=== PATIENT | male | born 1965 | race Caucasian/White ===

== ENCOUNTER 2016-12-01 13:00 | Inpatient (IN) | payer OTHER ==
[2016-12-01] MEDS ORDERED: SODIUM CHLORIDE 0.9% 1,000 ML IV STA (13:14)
[2016-12-01 13:39] LABS: Basophils # (A) 0.1 k/uL (0-0.2); Basophils % (A) 1 %; CHCM 33.9; Eosinophils # (A) 0.1 k/uL (0-0.7); Eosinophils % (A) 1 %; HCT 47.1 % (39.0-53.0); HDW 2.24; HGB 15.8 gm/dL (13.0-17.5); Luc # (Auto) 0.19; Luc % (Auto) 2; Lymphocytes # (A) 3.2 k/uL (1.0-4.8); Lymphocytes % (A) 28 %; MCH 31.8 pg (25.0-35.0); MCHC 33.5 g/dL (31.0-37.0); MCV 94.7 fL (80.0-100.0); Mean Platelet Volume 6.7; Monocytes # (A) 0.5 k/uL (0-1.0); Monocytes % (A) 5 %; Neutrophils # (A) 7.3 k/uL (1.3-7.7); Neutrophils % (A) 64 %; RBC 4.97 m/uL (4.30-5.90); RDW 13.5 % (11.5-15.5); WBC 11.4 k/uL (3.8-10.6); WBC (Perox) 11.05
--- NOTE | 2016-12-01 13:43 | ED ---
General Adult HPI - General Chief complaint: Neuro Symptoms/Deficit Stated complaint: left side numbness/near syncope/vomiting/high bp Time Seen by Provider: 12/01/16 13:08 Source: patient, RN notes reviewed, old records reviewed Mode of arrival: wheelchair Limitations: no limitations - History of Present Illness Initial comments: This is a 51-year-old male the ER for evaluation of vertigo and syncope. Patient had syncopal event earlier today this was well at work. Patient also complains of some mild left-sided headache. It started this afternoon. Patient did follow the ground during syncopal event in an attempt to get up was unable to stand secondary to dizziness. Patient's been dizzy ever since. Patient denies any chest pain denies any shortness of breath. Is complaining of the room spinning around. Patient does have high cholesterol, does smoke and does have occasional high blood pressure. Patient denies any other neurological complaint - Related Data Home Medications Medication Instructions Recorded Confirmed Buprenorphine HCl/Naloxone HCl 0.5 film SL MOWEFR 12/01/16 12/01/16 [Suboxone 2 mg-0.5 mg Sl Film] Buprenorphine HCl/Naloxone HCl 1 film SL SUTUTHSA 12/01/16 12/01/16 [Suboxone 2 mg-0.5 mg Sl Film] Gabapentin [Neurontin] 300 mg PO TID 12/01/16 12/01/16 Allergies Allergy/AdvReac Type Severity Reaction Status Date / Time morphine AdvReac TIRED Verified 12/01/16 13:33 Review of Systems ROS Statement: Those systems with pertinent positive or pertinent negative responses have been documented in the HPI. ROS Other: All systems not noted in ROS Statement are negative. 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 Absent: scleral icterus, conjunctival injection, periorbital swelling ENT exam: Present: normal exam, mucous membranes moist Neck exam: Present: normal inspection. Absent: tenderness, meningismus, lymphadenopathy Respiratory exam: Present: normal lung sounds bilaterally. Absent: respiratory distress, wheezes, rales, rhonchi, stridor Cardiovascular Exam: Present: regular rate, normal rhythm, normal heart sounds. Absent: systolic murmur, diastolic murmur, rubs, gallop, clicks GI/Abdominal exam: Present: soft, normal bowel sounds. Absent: distended, tenderness, guarding, rebound, rigid Extremities exam: Present: normal inspection, full ROM, normal capillary refill. Absent: tenderness, pedal edema, joint swelling, calf tenderness Back exam: Present: normal inspection Neurological exam: Present: alert, oriented X3, CN II-XII intact Psychiatric exam: Present: normal affect, normal mood Skin exam: Present: warm, dry, intact, normal color. Absent: rash Course Vital Signs 12/01/16 12/01/16 12/01/16 13:04 14:23 14:59 Temperature 97.5 F L Pulse Rate 78 63 58 L Respiratory 18 16 18 Rate Blood Pressure 150/76 137/86 150/77 O2 Sat by Pulse 100 98 100 Oximetry 12/01/16 12/01/16 15:23 15:53 Temperature Pulse Rate 59 L 63 Respiratory 16 Rate Blood Pressure 134/83 131/72 O2 Sat by Pulse 99 99 Oximetry - Reevaluation(s) Reevaluation #1: 12/01/16 16:29 In attempt to get patient to walk patient stood up and immediately tumble to his left and was unable to ambulate EKG Findings - EKG Comments: EKG Findings:: EKG shows sinus rhythm rate of 79, OR 146, QRS 82, QTC 419 Medical Decision Making - Medical Decision Making 51 male here for evaluation of neurological complaint. Patient has syncopal event followed by severe vertigo and ataxia. Patient remained ataxic in the emergency department, will be admitted for neurological evaluation and treatment regarding syncope as well as ataxia and vertigo - Lab Data Result diagrams: 12/01/16 13:17 12/01/16 13: Lab Results 12/01/16 12/01/16 12/01/16 Range/Units 13:17 13:17 13: WBC 11.4 H (3.8-10.6) k/uL RBC 4.97 (4.30-5.90) m/uL Hgb 15.8 (13.0-17.5) gm/dL Hct 47.1 (39.0-53.0) % MCV 94.7 (80.0-100.0) fL MCH 31.8 (25.0-35.0) pg MCHC 33.5 (31.0-37.0) g/dL RDW 13.5 (11.5-15.5) % Plt Count 270 (150-450) k/uL Neutrophils % 64 % Lymphocytes % 28 % Monocytes % 5 % Eosinophils % 1 % Basophils % 1 % Neutrophils # 7.3 (1.3-7.7) k/uL Lymphocytes # 3.2 (1.0-4.8) k/uL Monocytes # 0.5 (0-1.0) k/uL Eosinophils # 0.1 (0-0.7) k/uL Basophils # 0.1 (0-0.2) k/uL PT (9.0-12.0) sec INR (<1.1) APTT (22.0-30.0) sec Sodium 139 (137-145) mmol/L Potassium 3.6 (3.5-5.1) mmol/L Chloride 104 (98-107) mmol/L Carbon Dioxide 23 (22-30) mmol/L Anion Gap 12 mmol/L BUN 17 (9-20) mg/dL Creatinine 0.92 (0.66-1.25) mg/dL Est GFR (MDRD) Af Amer >60 (>60 ml/min/1.73 sqM) Est GFR (MDRD) Non-Af >60 (>60 ml/min/1.73 sqM) Glucose 102 H (74-99) mg/dL Calcium 10.0 (8.4-10.2) mg/dL Phosphorus 2.3 L (2.5-4.5) mg/dL Magnesium 1.8 (1.6-2.3) mg/dL Total Bilirubin 0.8 (0.2-1.3) mg/dL AST 26 (17-59) U/L ALT 35 (21-72) U/L Alkaline Phosphatase 74 (38-126) U/L Total Creatine Kinase 168 (55-170) U/L CK-MB (CK-2) 1.2 (0.0-2.4) ng/mL CK-MB (CK-2) Rel Index 0.7 Troponin I <0.012 (0.000-0.034) ng/mL Total Protein 7.5 (6.3-8.2) g/dL Albumin 4.6 (3.5-5.0) g/dL 12/01/16 Range/Units 13:17 WBC (3.8-10.6) k/uL RBC (4.30-5.90) m/uL Hgb (13.0-17.5) gm/dL Hct (39.0-53.0) % MCV (80.0-100.0) fL MCH (25.0-35.0) pg MCHC (31.0-37.0) g/dL RDW (11.5-15.5) % Plt Count (150-450) k/uL Neutrophils % % Lymphocytes % % Monocytes % % Eosinophils % % Basophils % % Neutrophils # (1.3-7.7) k/uL Lymphocytes # (1.0-4.8) k/uL Monocytes # (0-1.0) k/uL Eosinophils # (0-0.7) k/uL Basophils # (0-0.2) k/uL PT 11.0 (9.0-12.0) sec INR 1.1 (<1.1) APTT 22.4 (22.0-30.0) sec Sodium (137-145) mmol/L Potassium (3.5-5.1) mmol/L Chloride (98-107) mmol/L Carbon Dioxide (22-30) mmol/L Anion Gap mmol/L BUN (9-20) mg/dL Creatinine (0.66-1.25) mg/dL Est GFR (MDRD) Af Amer (>60 ml/min/1.73 sqM) Est GFR (MDRD) Non-Af (>60 ml/min/1.73 sqM) Glucose (74-99) mg/dL Calcium (8.4-10.2) mg/dL Phosphorus (2.5-4.5) mg/dL Magnesium (1.6-2.3) mg/dL Total Bilirubin (0.2-1.3) mg/dL AST (17-59) U/L ALT (21-72) U/L Alkaline Phosphatase (38-126) U/L Total Creatine Kinase (55-170) U/L CK-MB (CK-2) (0.0-2.4) ng/mL CK-MB (CK-2) Rel Index Troponin I (0.000-0.034) ng/mL Total Protein (6.3-8.2) g/dL Albumin (3.5-5.0) g/dL - Radiology Data Radiology results: report reviewed (CT brain CTA head and neck is negative for acute disease), image reviewed Disposition Clinical Impression: Cerebrovascular accident, Vertigo, Ataxia, Syncope Disposition: ADMITTED IP TO THIS [facility] Condition: Fair Referrals: Milan Lala MD [Primary Care Provider] - 1-2 days
[2016-12-01 13:46] LABS: ALT 35 U/L (21-72); AST 26 U/L (17-59); Alkaline Phosphatase 74 U/L (38-126); Anion Gap 12 mmol/L; Blood Urea Nitrogen 17 mg/dL (9-20); Carbon Dioxide 23 mmol/L (22-30); Chloride 104 mmol/L (98-107); Glucose 102 mg/dL (74-99); Magnesium 1.8 mg/dL (1.6-2.3); Non-African American GFR(MDRD) >60 (>60 ml/min/1.73 sqM); Phosphorous 2.3 mg/dL (2.5-4.5); Potassium 3.6 mmol/L (3.5-5.1); Sodium 139 mmol/L (137-145); Total Bilirubin 0.8 mg/dL (0.2-1.3); Total Protein 7.5 g/dL (6.3-8.2)
[2016-12-01 13:50] LABS: INR 1.1 (<1.1); Partial Thromboplastin Time 22.4 sec (22.0-30.0)
[2016-12-01] MEDS ORDERED: ONDANSETRON 4 MG/2 ML VIAL IVP STA (14:05)
[2016-12-01 14:06] LABS: Creatine Kinase 168 U/L (55-170)
[2016-12-01 14:20] LABS: Creatine Kinase MB 1.2 ng/mL (0.0-2.4); Troponin I <0.012 ng/mL (0.000-0.034)
--- NOTE | 2016-12-01 14:20 | XR ---
EXAMINATION TYPE: XR chest 2V DATE OF EXAM: 12/01/2016 2:01 PM COMPARISON: 02/25/2014 HISTORY: 51-year-old male with weakness TECHNIQUE: Frontal and lateral views FINDINGS: The heart is normal size. Aorta and pulmonary vasculature within normal limits. Mild interstitial pro minence similar to prior exam. Some strandy opacity in the lingula. No consolidation or pleural effus ion. IMPRESSION: Chronic changes. Some strandy atelectasis in the lingula. No definite acute process.
[2016-12-01] MEDS ORDERED: DIAZEPAM 5 MG/ML 2 ML SYRINGE IVP STA (14:23)
[2016-12-01] MEDS ORDERED: RX INFO: IV CONTRAST WAS GIVEN 1 EACH MISC MISCELLANE PRN (14:23)
[2016-12-01] MEDS ORDERED: MORPHINE SULFATE 4 MG/ML SYRINGE IVP STA (14:23)
--- NOTE | 2016-12-01 14:25 | CT ---
EXAMINATION TYPE: CT brain wo con DATE OF EXAM: 12/01/2016 1:56 PM COMPARISON: NONE INDICATION: Lightheaded, NAVARRO, Lt sided weakness DLP: 1159 mGycm, Automated exposure control for dose reduction was used. CONTRAST: None CT of the brain is performed utilizing 3 mm thick sections through the posterior fossa and 3 mm thick sections through the remaining calvarium. Study is performed within 24 hours of arrival to the hosp ital. No abnormal hyperdensity is present to suggest an acute intracranial hemorrhage. No mass lesion is evident. No acute infarcts are evident. Ventricles and sulci are appropriate for the patient age. Some mucosal thickening is within ethmoid air cells. There may be an air-fluid level within the left sphenoid sinus. Remaining paranasal sinuses and mastoid air cells are clear IMPRESSIONS: 1. Normal CT Brain 2. Mucosal thickening possible air-fluid level within ethmoid and sphenoid sinuses discussed above. C orrelate for mild acute sinusitis left sphenoid sinus.
[2016-12-01] MEDS ORDERED: ACETAMINOPHEN TAB 500 MG TAB PO STA (14:37)
[2016-12-01] MEDS ORDERED: diphenhydrAMINE 50 MG/ML 1 ML VIAL IVP STA (14:37)
--- NOTE | 2016-12-01 16:01 | CT ---
EXAMINATION TYPE: CT angio head neck DATE OF EXAM: 12/01/2016 3:06 PM COMPARISON: NONE HISTORY: Near syncope. CT DLP: 472.00 mGycm Automated exposure control for dose reduction was used. TECHNIQUE: Performed with IV Contrast, patient injected with 65 mL of Omnipaque 350. . FINDINGS: [place]: The internal carotid arteries bifurcate into A1 and M1 segments. The right A1 segme nt is attenuated which may be congenital the M1 segments appear normal bilaterally. Middle cerebral a rtery branches appear normal. A2 segments are unremarkable. The anterior communicating artery is velazquez nt. Right posterior communicating artery is patent. Vertebral arteries are codominant. The basilar ar poonam is unremarkable. Posterior cerebral vasculature is normal. Neck carotid vessels: Common carotid arteries bifurcate normally into internal and external carotid v essels. No stenosis is evident. Internal carotid arteries extend to the intracranial portion. There is a three-vessel arch. IMPRESSION: 1. 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 2. [place] OTHERWISE APPEARS UNREMARKABLE. 3. NORMAL CAROTID BIFURCATION WITHOUT STENOSIS.
[2016-12-01] MEDS ORDERED: ASPIRIN 325 MG TAB PO STA (16:25)
[2016-12-01] MEDS ORDERED: DIAZEPAM 5 MG/ML 2 ML SYRINGE IVP PRN (16:26)
[2016-12-01] MEDS ORDERED: ONDANSETRON 4 MG/2 ML VIAL IVP PRN (16:26)
[2016-12-01] MEDS ORDERED: PANTOPRAZOLE 40 MG/10 ML VIAL IVP STA (16:26)
[2016-12-01] MEDS ORDERED: HYDROmorphone 1 MG/ML 1 ML SYRINGE IVP PRN (16:27)
[2016-12-01] MEDS ORDERED: HYDROmorphone 1 MG/ML 1 ML SYRINGE IVP STA (16:27)
[2016-12-01] MEDS ORDERED: SODIUM CHLORIDE 0.9% 1,000 ML IV SCH (16:30)
--- NOTE | 2016-12-01 18:21 | US ---
EXAMINATION TYPE: US carotid duplex BILAT DATE OF EXAM: 12/01/2016 5:59 PM COMPARISON: NONE CLINICAL HISTORY: Stenosis. EXAM MEASUREMENTS: RIGHT: Peak Systolic Velocity (PSV) cm/sec ----- Right CCA: 68.8 ----- Right ICA: 80.6 ----- Right ECA: 80.5 ICA/CCA ratio: 1.2 RIGHT: End Diastole cm/sec ----- Right CCA: 17.5 ----- Right ICA: 31.9 ----- Right ECA: 14.5 LEFT: Peak Systolic Velocity (PSV) cm/sec ----- Left CCA: 70.0 ----- Left ICA: 80.7 ----- Left ECA: 74.3 ICA/CCA ratio: 1.2 LEFT: End Diastole cm/sec ----- Left CCA: 21.2 ----- Left ICA: 32.0 ----- Left ECA: 10.1 VERTEBRALS (direction of flow): Right Vertebral: Antegrade Left Vertebral: Antegrade No significant velocity elevations Doppler waveforms are unremarkable. No significant plaquing is evident. There may be some mild intima l thickening present on the left without significant stenosis. IMPRESSION: 1. No significant flow-limiting stenosis. Criteria for Assigning % of Stenosis / Diameter reduction (Estimation based on the indirect measurements of the internal carotid artery velocities (ICA PSV). 1. Normal (no stenosis)=ICA PSV < 125 cm/s: ratio < 2.0: ICA EDV<40 cm/s. 2. Less than 50% stenosis=ICA PSV < 125 cm/s: ratio < 2.0: ICA EDV<40 cm/s. 3. 50 to 69% stenosis=ICA PSV of 125 to 230 cm/s: ration 2.0 ? 4.0: ICA EDV 40-100 cm/s. 4. Greater than 70% stenosis to near occlusion= ICA PSV > 230 cm/s: ratio > 4.0: ICA EDV > 100 cm/s. 5. Near occlusion= ICA PSV velocities may be low or undetectable: variable ratio and ICA EDV. 6. Total occlusion=unable to detect flow.
--- NOTE | 2016-12-01 21:42 | P.CNNES ---
History of Present Illness Consult date: 12/01/16 Reason for Consult: Patient admitted with acute vertigo and possible syncope. History of Present Illness: This patient is a 51-year-old right-handed white male who was in his usual state of health earlier this morning. 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 He is on to work and was doing well until mid morning when he went to the kitchen area and apparently standing near the sink suddenly felt extremely dizzy and vertiginous. Patient states he was feeling the room spinning around him. He then became extremely diaphoretic and his head fell forward and he struck the counter where he was standing. Coworkers immediately assisted him and had him sit down. Patient states he was feeling very nauseated and felt sick to his stomach. The symptoms came on suddenly with no warning. He was unable to stand and ambulate due to severe symptoms of dizziness. 2 days prior to this patient had been complaining of left ear pain. He did not experience any fever or chills. He has today experience some neck discomfort which is possibly due to the mild trauma. The patient did not want to go to the hospital this morning as was recommended by his coworkers. He instead called his who took him home and then his symptoms worsened and she decided to bring him to the ER. Patient was brought to the [facility] emergency room where he was examined by Dr. Brownlee. He ordered a computed tomography scan of the brain which revealed no acute changes. It was read as a normal CT of the brain. He was sent for a CTA angiogram of the head and neck which came back negative for any major changes. He was subsequently admitted to the hospital. In the ER he was administered Valium 5 mg IV push. After receiving the Valium his symptoms of acute vertigo did seem to improve. He was also given some Zofran due to severe nausea symptoms he was experiencing. Patient does not appear to be toxic at this time but still feels he is lightheaded. He denies having any previous history of TIA or stroke. He denies any previous history of acute vertigo or labyrinthitis. The patient also underwent a carotid Doppler ultrasound today. This came back negative for any significant carotid artery stenosis. We reviewed all of the test results today with the patient. He is now been admitted and neurology has been consulted for further evaluation and recommendations. Review of Systems Constitutional: Denies chills, Denies fever Eyes: denies blurred vision, denies pain Ears, nose, mouth and throat: Denies headache, Denies sore throat Cardiovascular: Denies chest pain, Denies shortness of breath Respiratory: Denies cough Gastrointestinal: Denies abdominal pain, Denies diarrhea, Denies nausea, Denies vomiting Musculoskeletal: Denies myalgias Integumentary: Denies pruritus, Denies rash Neurological: Reports gait dysfunction, Reports head injury, Reports vertigo, Denies numbness, Denies weakness Psychiatric: Denies anxiety, Denies depression Endocrine: Denies fatigue, Denies weight change Past Medical History Past Medical History: Hyperlipidemia, Hypertension 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 History of Any Multi-Drug Resistant Organisms: None Reported Past Surgical History: Appendectomy Additional Past Surgical History / Comment(s): Chest tube Past Psychological History: No Psychological Hx Reported Smoking Status: Current every day smoker Past Alcohol Use History: Occasional Past Drug Use History: None Reported Medications and Allergies Home Medications Medication Instructions Recorded Confirmed Type Buprenorphine HCl/Naloxone HCl 0.5 film SL MOWEFR 12/01/16 12/01/16 History [Suboxone 2 mg-0.5 mg Sl Film] Buprenorphine HCl/Naloxone HCl 1 film SL SUTUTHSA 12/01/16 12/01/16 History [Suboxone 2 mg-0.5 mg Sl Film] Gabapentin [Neurontin] 300 mg PO TID 12/01/16 12/01/16 History Allergies Allergy/AdvReac Type Severity Reaction Status Date / Time morphine AdvReac TIRED Verified 12/01/16 13:33 Physical Examination - Vital Signs Vital Signs: Vital Signs Temp Pulse Pulse Resp BP Pulse Ox 12/01/16 18:25 97.1 F L 61 16 128/81 98 12/01/16 17:25 61 16 134/86 98 12/01/16 17:00 57 L 16 144/87 98 12/01/16 16:48 97.0 F L 58 L 18 140/85 97 Intake and Output 12/01/16 12/01/16 12/01/16 06:59 14:59 22:59 Intake Total 1500 Balance 1500 Intake: Amount of Fluid Infused ( 1500 ml) - Constitutional General appearance: average body habitus, cooperative - EENT EENT: PERRL, mucous membranes moist - Respiratory Respiratory: lungs clear, normal breath sounds - Cardiovascular Cardiovascular: regular rate, normal S1, normal S2 Extremities: no peripheral edema bilaterally - Gastrointestinal Gastrointestinal: normoactive bowel sounds - Integumentary Integumentary: normal - Neurologic Cranial nerve examination: PERRL, EOMI (Patient noted to have horizontal nystagmus on end gaze testing.), V1/V2/V3 grossly intact, face symmetric, tongue midline, intact gag reflex, intact corneal reflex, normal palatal elevation Speech examination: intact Sensorimotor examination: intact Detailed motor examination: grossly full strength in all extremities Motor examination - right side: 5/5: biceps, triceps, wrist flexion, wrist extension, cuff slitter, hip flexors, knee extensors, dorsiflexion, toe extension (EHL) , plantarflexion Motor examination - left side: 5/5: biceps, triceps, wrist flexion, wrist extension, cuff slitter, hip flexors, knee extensors, dorsiflexion, toe extension (EHL) , plantarflexion Detailed sensory examination: intact Reflex and gait examination: intact Reflexes: 1+: ankle, bicep, knee, tricep - Musculoskeletal Musculoskeletal: no pain - Psychiatric Psychiatric: mood/affect appropriate, cooperative Results - Laboratory Findings CBC and BMP: 12/01/16 13:17 12/01/16 13:17 Assessment and Plan (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 He was unable to stand due to nausea vomiting and extreme dizziness. He did not wish to go to the emergency room but rather called his and went home. His symptoms worsened and he was brought into the emergency room for further evaluation. He was seen in the ER by Dr. Brownlee. He underwent a computed tomography scan of the brain which was reported negative and normal for age. He was admitted to Hospital. He underwent a CTA angiogram which is also reported negative for any acute changes. Carotid Doppler study came back negative for any significant carotid artery stenosis. Patient was admitted for further neurological evaluation. His neurological examination today reveals him to have horizontal nystagmus on in gaze testing. He does have minimal signs of dysmetria. His clinical history and exam findings suggest possible benign paroxysmal positional vertigo. We are recommending to start him on low dose meclizine 12.5 mg twice a day. We will obtain an MRI of the brain for further assessment as well. He did have what appears to be in acute syncopal episode etiology undetermined. He should be closely followed with cardiac monitoring to rule out cardiac arrhythmia. We will obtain routine EEG to rule out seizure disorder. He is complaining of some neck discomfort following this mild trauma and we will obtain a computed tomography scan of the cervical spine. His overall prognosis at this time remains guarded. We will continue close neurological follow-up with the patient during this admission. Time with Patient: Greater than 30
[2016-12-02] MEDS: GABAPENTIN 300 MG CAP PO SCH ×3 (00:04→16:02)
[2016-12-02] MEDS: ACETAMINOPHEN TAB 325 MG TAB PO PRN ×3 (00:05→18:46)
[2016-12-02] MEDS ORDERED: [UNRECOGNIZED DRUG - OTHER] SL SCH ×2 (09:00→23:59)
[2016-12-02] MEDS ORDERED: NALOXONE HCL SL SCH ×2 (09:00→23:59)
[2016-12-02] MEDS ORDERED: BUPRENORPHINE HCL SL SCH ×2 (09:00→23:59)
[2016-12-02] MEDS ORDERED: ASPIRIN 325 MG TAB PO SCH (09:00)
[2016-12-02] MEDS ORDERED: MECLIZINE 12.5 MG TAB PO SCH (09:00)
--- NOTE | 2016-12-02 10:06 | MR ---
EXAMINATION TYPE: MR brain wo con DATE OF EXAM: 12/02/2016 9:45 AM COMPARISON: CT brain from yesterday. HISTORY: Patient with acute vertigo and ataxia. Additional symptoms of headache and left-sided weakne ss on admission one day earlier. TECHNIQUE: Multiplanar, multisequence imaging of the brain and brainstem is performed without IV cont rast. FINDINGS: Diffusion weighted images demonstrate demonstrate increased signal on diffusion weighted images with diminished signal on ADC mapping that shows T1 hypointensity and T2 hyperintensity involving the infe rior medial left cerebellum over roughly 3.3 x 2.1 cm area on image 40 series 305 by roughly 2 cm unscrambler niocaudal area on coronal and sagittal image 9. Findings consistent with evolving acute infarct. There is no worrisome extra-axial fluid collection. The ventricular system and cisternal spaces are normal in size and appearance. The brain volume is age appropriate. There are scattered foci of T2 h yperintensity seen throughout the white matter bilaterally. Approximately 15-20 scattered lesions are seen all measuring 4 mm or smaller in size. Lesions are nonspecific in appearance and distribution. Midline structures demonstrate normal morphology. The craniocervical junction appears within normal limits. Normal vascular flow voids are present. Dominant right vertebral artery is present. There is mild mucosal thickening involving ethmoid sinuses bilaterally otherwise paranasal sinuses are clear. The globes are intact bilaterally. IMPRESSION: 1. Acute infarct inferior medial left cerebellum as detailed above.
--- NOTE | 2016-12-02 10:51 | CT ---
EXAMINATION TYPE: CT cervical spine wo con DATE OF EXAM: 12/02/2016 10:44 AM COMPARISON: NONE HISTORY: 51-year-old male with mild neck trauma with syncope TECHNIQUE: Contiguous axial scanning of the cervical spine without IV contrast. Coronal and sagittal reconstructions performed. CT DLP: 638.20 mGycm Automated exposure control for dose reduction was used. FINDINGS: Mild emphysematous change in the visualized upper lungs Reversal of the normal cervical lordosis but with preserved alignment. No craniocervical junction are mildly, predental space widening, or prevertebral soft tissue swelling . No acute fracture of the cervical spine. No high-grade foraminal narrowing is seen. Assessment of the spinal canal from C6-C7 and below limite d due to artifact from the patient's shoulders. IMPRESSION: 1. Reversal of the normal cervical lordosis could be positional or due to muscle spasm. 2. No acute fracture or malalignment of the cervical spine.
[2016-12-02] MEDS: PANTOPRAZOLE 40 MG/10 ML VIAL IVP SCH (11:05)
--- NOTE | 2016-12-02 11:05 | HP ---
DATE OF ADMISSION: 12/01/2016 PRESENTING COMPLAINT: Head spinning. HISTORY OF PRESENTING COMPLAINT: This is a pleasant 51-year-old patient of Dr. Lala whose chronic stable medical conditions include hyperlipidemia, hypertension, smoker. The patient was usual job, went to put a plate in the sink after lunch and suddenly felt the room really spinning. Patient thinks things started getting blurred and really could not keep his head up and in fact, had his head in the sink and started vomiting, sweating, developed a significant headache. Patient's speech also became slurred. Denies any buzzing in the ear or any viral-like infections. Hence, the patient presented to the ER. Patient has some facial asymmetry I think. No change in swallowing, has a headache. REVIEW OF SYSTEMS: CONSTITUTIONAL: None. HEENT: As above. RESPIRATORY: None. CARDIOVASCULAR: None. GASTROINTESTINAL: None. GENITOURINARY: None. MUSCULOSKELETAL: None. DERMATOLOGIC: None. HEMATOLOGIC: None. LYMPHATIC: None. PSYCHIATRY: None. NEUROLOGICAL: As above. PAST MEDICAL HISTORY: Hyperlipidemia, hypertension, empyema. PAST SURGICAL HISTORY: Appendectomy, chest tube. SOCIAL HISTORY: Smokes a pack a day, , employed. Patient had problems with recreational drugs in the past. FAMILY HISTORY: Reviewed, noncontributory to the presentation. HOME MEDICATIONS: 1. Neurontin 300 mg p.o. t.i.d. 2. Suboxone 2 mg/0.5, half a pill Monday, Monday and Monday and 1 pill sublingual Monday, Monday, , Monday. ALLERGIES: MORPHINE. On examination, temperature 97.1, pulse 61, respirations 16, blood pressure 120/81, pulse ox 98% on 2-L. GENERAL APPEARANCE: Well built, BMI 31.2, lying in bed not in distress. EYES: Pupils equal. Conjunctivae normal. HEENT: Oral cavity normal. NECK: JVD not raised. Mass not palpable. RESPIRATORY: Effort normal. Lungs are clear. CARDIOVASCULAR: First and second sounds normal. No edema. ABDOMEN: Soft, nontender. Liver and spleen not palpable. LYMPHATIC: No lymph node palpable in neck or axillae. PSYCHIATRY: Alert and oriented x3. Mood and affect normal. NEUROLOGICAL: Some facial asymmetry is present and maybe right-sided slightly weak. Patient has mild dysdiadochokinesia. On walking patient is tending to fall to the left. There may be questionable left-sided nystagmus. The patient's speech is a little bit slow, more so than previously. INVESTIGATIONS: White count 9.4, hemoglobin 15.8, potassium 3.6, BUN and creatinine are normal. Troponin negative. CT angiogram of the brain shows probable ( ) of the right A1 segment. Carotid Doppler was no significant narrowing. ASSESSMENT: 1. This is a patient who presents with certain spinning of the room, patient's vision became effected, speech became slurred, poor balance, headache, some facial asymmetry. Differential includes acute stroke. This could be well in the cerebellum or in the brainstem. Acute vestibulitis is also in the differential. 2. Essential hypertension. 3. Hyperlipidemia. 4. Obesity, body mass index is 31.2. PLAN: MRI of the brain was ordered. Neurology was ordered. Neuro checks are in place. Home medications are resumed. Patient's blood pressure was higher on presentation, now is coming down. EKG is unremarkable. Patient will be started on aspirin and also started on Antivert. Home medications are resumed. Care was discussed with the patient.
--- NOTE | 2016-12-02 11:41 | ECHOF ---
Referral Reason:Thrombus MEASUREMENTS -------- HEIGHT: 190.5 cm WEIGHT: 113.4 kg BP: 132/76 RVIDd: 3.6 cm (< 3.3) IVSd: 1.3 cm (0.6 - 1.1) LVIDd: 5.3 cm (3.9 - 5.3) LVPWd: 1.1 cm (0.6 - 1.1) IVSs: 1.6 cm LVIDs: 3.7 cm LVPWs: 1.4 cm LA Diam: 3.2 cm (2.7 - 3.8) LAESV Index (A-L): 20.84 ml/m Ao Diam: 3.0 cm (2.0 - 3.7) AV Cusp: 2.1 cm (1.5 - 2.6) LA Diam: 3.9 cm (2.7 - 3.8) MV EXCURSION: 18.048 mm (> 18.000) MV EF SLOPE: 82 mm/s (70 - 150) EPSS: 0.6 cm MV E Coy: 1.05 m/s MV DecT: 262 ms MV A Coy: 0.85 m/s MV E/A Ratio: 1.23 FINDINGS -------- Sinus rhythm with extra systolic beats. This was a technically good study. The left ventricular size is normal. There is mild concentric left ventricular hypertrophy. Overall left ventricular systolic function is normal with, an EF between 60 - 65 %. The right ventricle is normal in size and function. Normal LA size by volume 22+/-6 ml/m2. The right atrium is normal in size. The aortic valve is trileaflet, and appears structurally normal. No aortic stenosis or regurgitation.SUSPICIOUS ECHOS NOTED ON AORTIC CUSP ,RECOMMEND MESFIN. Cannot rule out vegetation. There is trace to mild mitral regurgitation. Trace tricuspid regurgitation present. There is no evidence of pulmonary hypertension. Trace/mild (physiologic) pulmonic regurgitation. The aortic root size is normal. The pericardium is normal. CONCLUSIONS -------- 1. Sinus rhythm with extra systolic beats. 2. There is trace to mild mitral regurgitation. 3. Trace tricuspid regurgitation present. 4. There is no evidence of pulmonary hypertension. 5. Trace/mild (physiologic) pulmonic regurgitation. 6. The aortic root size is normal. 7. The pericardium is normal. 8. This was a technically good study. 9. The left ventricular size is normal. 10. There is mild concentric left ventricular hypertrophy. 11. Overall left ventricular systolic function is normal with, an EF between 60 - 65 %.RECOMMEND MESFIN FOR SUSPICIOUS ECHOS ON AORTIC CUSP. 12. The right ventricle is normal in size and function. 13. Normal LA size by volume 22+/-6 ml/m2. 14. The aortic valve is trileaflet, and appears structurally normal. No aortic stenosis or regurgitation. 15. Cannot rule out vegetation. [employer] SALES REPRESENTATIVE: Kristen Krishnan RDCS
[2016-12-02] MEDS ORDERED: fentaNYL (PF) 50 MCG/ML 2 ML AMP ONE (11:57)
[2016-12-02] MEDS ORDERED: FAMOTIDINE 20 MG/2 ML VIAL ONE (11:57)
[2016-12-02] MEDS ORDERED: MIDAZOLAM 2 MG/2 ML VIAL ONE (11:58)
[2016-12-02] MEDS ORDERED: BENZOCAINE SPRAY 100 APPLIC/CAN MUCOUS MEM ONE ×3 (12:03→12:24)
[2016-12-02] MEDS ORDERED: fentaNYL (PF) 50 MCG/ML 2 ML AMP IV ONE (12:04)
[2016-12-02] MEDS ORDERED: MIDAZOLAM 2 MG/2 ML VIAL IVP ONE (12:04)
[2016-12-02] MEDS ORDERED: SODIUM CHLORIDE 0.9% 500 ML IV ONE (12:05)
[2016-12-02] MEDS: fentaNYL (PF) 50 MCG/ML 2 ML AMP IV ONE ×2 (12:26→12:33)
[2016-12-02] MEDS: MIDAZOLAM 2 MG/2 ML VIAL IVP ONE ×2 (12:27→12:33)
[2016-12-02] MEDS ORDERED: SODIUM CHLORIDE 0.9% 1,000 ML IV SCH (13:00)
--- NOTE | 2016-12-02 13:08 | P.PCN ---
Date of Procedure: 12/02/16 Preoperative Diagnosis: CVA and suspected mass on the aortic valve Postoperative Diagnosis: No evidence of any mass on the aortic valve.No clot in the left atrial appendage. Possible PFO or AV malformation Procedure(s) Performed: MESFIN Description of Procedure: INDICATION : The procedure is being done to assess cardiac source of emboli. And also clarify suspicious mass on the aortic valve leaflets. CONSENT:informed consent was obtained from family and patient PROCEDURE:patient was brought to the lab in a fasting state. Patient was prepped and draped in the usual fashion. The throat was sprayed with Cetacaine. Patient was given conscious sedation with 3 mg of Versed and 75 g of fentanyl. The duration of the sedation was 20 minutes. A lubricated Omni probe was introduced into the oropharynx and was advanced into the esophagus. Multiple views were obtained both from the esophagus and stomach. Patient tolerated the procedure wellthe 7. Contrast bubble injection and color and pulse with Doppler's were performed FINDINGS:The aortic valve is tricuspid with a normal function.No vegetation or masses noted on the aortic valve.Mhe mitral valve appeared to be normal. The tricuspid valve appeared to be normal. The interatrial septum appeared to be normal without any spontaneous shunting documented. Injection of the contrast saline bubbles showed some late arrival of bubbles in the left atrium especially after coughing. The possibility of a small PFO or AV malformation cannot rule out. Left atrial appendage is free of any clot. Left ventricle function is normal. Aorta appeared to be normal with mild intimal thickening. IMPRESSION:#1. No clot in left atrial appendage #2. Normal mitral, aortic and tricuspid valves #3. Interatrial septum appears to be intact without any spontaneous shunt. There are late arriving bubbles after saline bubble injection suggestive of a small PFO or AV malformation #4. Normal LV function. #5. Mild intimal thickening of the aorta PLAN:continue the antiplatelet agents. Venous duplex study to rule out any DVT. May consider loop recorder insertion.
--- NOTE | 2016-12-02 19:14 | US ---
EXAMINATION TYPE: US venous doppler duplex LE BI DATE OF EXAM: 12/02/2016 4:43 PM COMPARISON: NONE CLINICAL HISTORY: suspected thrombosis. Hx of mini stroke x yesterday. Unsteady gait. No hx of bloo d clots. No pain. Not on any blood thinners. SIDE PERFORMED: Bilateral TECHNIQUE: The lower extremity deep venous system is examined utilizing real time linear array sonog veronika with graded compression, doppler sonography and color-flow sonography. VESSELS IMAGED: External Iliac Vein (EIV) Common Femoral Vein Deep Femoral Vein Greater Saphenous Vein * Femoral Vein Popliteal Vein Small Saphenous Vein * Proximal Calf Veins (* superficial vessels) Right Leg: Appears negative for DVT Left Leg: Appears negative for DVT IMPRESSION: Grayscale, color doppler, spectral doppler imaging performed of the deep veins of the lo wer extremities. There is normal flow, compressibility, vascular waveforms bilaterally.
[2016-12-02] MEDS ORDERED: traMADol 50 MG TAB PO STA (20:50)
[2016-12-02] MEDS ORDERED: DEXAMETHASONE SOD PHOSPHATE 10 MG/ML 1 ML VIAL IV STA (20:51)
--- NOTE | 2016-12-02 21:52 | PN ---
DATE OF SERVICE: 12/02/2016. INTERVAL HISTORY: This is a pleasant 51-year-old patient who presented to the emergency department after he experienced dizziness. Patient was on the job after lunch and became dizzy. Vision became blurry. Began vomiting, sweating, developed a headache. Speech became slurred. Therefore, patient was at presented to the emergency department. Review of systems done for constitutional, cardiovascular, GI, pulmonary with relevant findings as above. CURRENT MEDICATIONS: 1. Neurontin. 2. Suboxone Monday, Monday and Monday and Monday, , Monday. PHYSICAL EXAMINATION: VITAL SIGNS: Temperature 97.0, pulse 58, respirations 18, blood pressure 142/88, oxygen saturation 94% on room air. GENERAL APPEARANCE: Lying in bed, not in any distress. EYES: Pupils equal. Conjunctivae normal. NECK: JVD not raised. Mass not palpable. RESPIRATORY: Effort normal. Lungs are clear. CARDIOVASCULAR: S1, S2 sounds normal. No edema noted. ABDOMEN: Soft, nontender. Liver and spleen not palpable. PSYCHIATRIC: Alert and oriented x3. Mood and affect normal. NEUROLOGICAL: Some facial symmetry noted. Maybe right-sided slightly weak. Patient has mild dysdiadochokinesia. On walking, patient tending to fall to the left and was much worse. Questionable left-sided nystagmus. Patient's speech is a bit slow. Patient complains of a headache. INVESTIGATIONS: No new labs. MRI impression: Acute infarct, inferior medial left cerebellum as detailed in report. Echocardiogram performed 12/02/2016: Trace mild mitral regurgitation, trace tricuspid regurgitation. Trace mild pulmonic regurgitation. Aortic root is normal. Pericardium is normal. Left ventricular size is normal. Suspicious echo is on aortic cusp, recommend MESFIN. Cannot rule out vegetation. MESFIN performed 12/02/2016: No clot in left atrial appendage. Normal mitral, aortic and tricuspid valves. Interatrial septum appears to be intact without any spontaneous shunt. There were late arriving bubbles after saline bubble injection suggestive of a small PFO or an AV malformation. Normal LV function. Mild intimal thickening of the aorta. ASSESSMENT: 1. Acute stroke as confirmed by MRI located in the inferior medial left cerebellum. 2. Essential hypertension. 3. Hyperlipidemia. 4. Obesity, body mass index of 31.2. PLAN: MRI confirmed cerebellar infarct. Nephrology was consulted. Neuro checks continue. Inpatient rehab consultation initiated. Care was discussed with the patient. The patient was seen and examined by me/nurse practitioner and attending/Dr. Pickett. The relevant points of history/physical/diagnosis/plan were discussed and are as dictated above. I performed a history and physical examination of this patient and discussed the same with the dictator. I agree with the dictator's note. Any additional findings/opinions, etc. will be noted.
--- NOTE | 2016-12-02 22:55 | P.PN ---
Subjective This patient is a 51-year-old male who was seen in neurology consultation yesterday with admitting symptoms of severe dizziness and gait ataxia. His neurological findings on examination yesterday suggested possibility of benign positional vertigo versus brainstem stroke. Patient was advised to undergo MRI of the brain for further evaluation. Patient completed a MRI of the brain today which was reviewed. MRI reveals evidence of an acute left cerebellar stroke. Patient was seen by cardiology and underwent a MESFIN procedure today for further evaluation of acute stroke findings. MESFIN indicates possible small PFO or AV malformation. We are waiting further recommendations from cardiology regarding the MESFIN results. We reviewed the results of the MRI and MESFIN today with the patientand his in detail.The patient is complaining of left- sided retro-orbital eye pain. There is some swelling in the periorbital region as well. We have recommended a stat ophthalmology consultation be ordered for this patient for review of this sudden changes. We will also begin the patient on Decadron for the possibility of mild vasogenic edema secondary to his recent stroke. He is requesting some pain medication due to some degree of left-sided headache pain. We will give him a one time dose of tramadol to see how this may be effective for him. We have discussed all of his test results in detail today with the patient and his . We will await further recommendations from the cardiology team. His overall prognosis at this time remains guarded. Objective - Vital Signs Vital signs: Vital Signs Temp 97.0 F L 12/02/16 04:00 Pulse 51 L 12/02/16 14:30 Resp 18 12/02/16 12:00 BP 142/86 12/02/16 14:30 Pulse Ox 94 L 12/02/16 12:00 Intake & Output 12/02/16 12/02/16 12/03/16 06:59 18:59 06:59 Intake Total 2600 820 Output Total 700 Balance 2600 120 Weight 110.9 kg Intake: IV 300 Amount of Fluid Infused ( 1500 ml) Intake, IV Titration 800 160 Amount Sodium Chloride 0.9% 1, 800 000 ml @ 100 mls/hr IV . Q10H [facility] Rx#:[id number] Sodium Chloride 0.9% 1, 160 000 ml @ 20 mls/hr IV . Q24H [facility] Rx#:[id number] Oral 300 360 Output: Urine 700 Other: Voiding Method Urinal # Voids 1 - Exam Physical examination: PHYSICAL EXAMINATION: Patient is resting comfortably in bed. VITAL SIGNS: Blood pressure is [142/86]. Heart rate is [51]. Respiration is [18] . Temperature is [97.0]. HEENT: Head is atraumatic, neck is supple, there were no carotid bruits. CHEST: Lungs are clear to auscultation and percussion. CARDIAC: S1, S2 normal rate and rhythm. There is no murmur. ABDOMEN: Soft and nontender. Bowel sounds are present. EXTREMITIES: There is no pedal edema. Peripheral pulses are present. Neurological examination: Patient's neurological examination is unchanged from yesterday. He continues to have dysmetria on the left upper arm. He continues to have horizontal nystagmus on gaze testing. His remaining neurological examination is unchanged from yesterday. - Labs CBC & Chem 7: 12/01/16 13:17 12/01/16 13:17 Assessment and Plan (1) Vertebrobasilar insufficiency Status: Acute Code(s): G45.0 - VERTEBRO-BASILAR ARTERY SYNDROME (2) Benign paroxysmal positional vertigo Status: Acute Code(s): H81.10 - BENIGN PAROXYSMAL VERTIGO, UNSPECIFIED EAR (3) Syncope Status: Acute Code(s): R55 - SYNCOPE AND COLLAPSE (4) Neurologic gait dysfunction Status: Acute Code(s): R26.9 - UNSPECIFIED ABNORMALITIES OF GAIT AND MOBILITY Plan: This patient is a 51-year-old male who was admitted yesterday with symptoms of acute dizziness and vertigo. His clinical findings suggested a differential diagnosis of benign vertigo versus brainstem ischemia. Patient was sent for MRI of the brain today which was completed. MRI reveals evidence of any acute left cerebellar stroke. He was seen by cardiology and a MESFIN procedure was performed today. The MESFIN indicates possibility of a small PFO. We are waiting further recommendations from cardiology regarding the MESFIN findings. Patient is complaining of left retro-orbital pain today and we have recommended a stat ophthalmology consultation for further assessment. We will also start this patient on Decadron with possibility of vasogenic edema from his recent stroke. We will put him on neuro checks every 2 hours overnight. He was given 1 dose of tramadol for management of some of the headache pain. We will continue very close neurological follow-up for this patient and we will await the recommendations of other consultants. Case was discussed at length with the patient and his at bedside. All their questions were answered. His overall prognosis at this time remains very guarded.
[2016-12-03] MEDS: GABAPENTIN 300 MG CAP PO SCH ×4 (05:43→19:12)
--- NOTE | 2016-12-03 08:41 | EEG ---
DATE OF SERVICE: 12/02/2016 INDICATIONS FOR EXAMINATION: This patient is a 51 -year-old male admitted to the hospital with ataxia and dizziness. MRI evidence of acute left cerebellar stroke. AGE: 51Y EEG FINDINGS: A routine 21 channel awake digital EEG recording was accomplished utilizing the 10-20 international system with bipolar and referential montages. The background activity in the most alert resting state consists of a low to medium amplitude, fairly well developed and well sustained 7 Hz activity over the posterior head regions. This posterior rhythm attenuates to eye opening. There is a small amount of low amplitude 18-20 Hz beta activity seen maximally over the anterior head regions. Muscle and movement artifact was observed on a few occasions during the tracing. Hyperventilation was not performed. Photic stimulation at flash frequencies of 2-30 Hz produced a minimal occipital driving response. No epileptiform discharges were seen. IMPRESSION: This EEG is within normal limits for the patient's age. The EEG failed to reveal any focal, lateralized or epileptiform abnormalities. Clinical correlation is recommended.
[2016-12-03] MEDS ORDERED: NICOTINE 14MG/24HR PATCH TRANSDERM SCH (09:00)
[2016-12-03] MEDS ORDERED: NON-FORMULARY DRUG (Buprenorphine Hcl/Naloxone Hcl [Suboxone 2 Mg-0.5 Mg Sl Film] 1 FILM) SL SCH (09:00)
[2016-12-03] MEDS ORDERED: CLOPIDOGREL 75 MG TAB PO SCH (09:00)
[2016-12-03] MEDS: DEXAMETHASONE 4 MG TAB PO SCH ×3 (09:36→19:12)
[2016-12-03] MEDS: PANTOPRAZOLE 40 MG/10 ML VIAL IVP SCH (09:37)
--- NOTE | 2016-12-03 09:47 | P.CRDCN ---
History of Present Illness Consult date: 12/03/16 Requesting physician: Porter Pickett Reason for Consult (text): CVA Chief complaint: Dizziness, left-sided weakness, blurred vision. History of present illness: This is a 51-year-old gentleman with history of hypertension, hyperlipidemia, nicotine dependence, who was in his usual state of health, prior to admission to the hospital he states that he was at work, walked into the kitchen area and became very dizzy. His that he felt extremely unsteady, mild left-sided weakness, mild difficulty in speaking. Shortly thereafter patient states that his head fell forward landing onto the counter. He became extremely nauseated and was unable to stand up because of weakness. Patient also complained of visual disturbance in his left eye as well as associated headache. For these reasons he came to the emergency room for further evaluation. His initial CAT scan was normal, with mucosal thickening possible air-fluid level within the ethmoid and's ethmoid sinuses. EKG on admission showed normal sinus rhythm with no acute changes. Chest x-ray revealed chronic changes no acute process. 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 [place] unremarkable. Doppler study did not reveal any significant stenosis area MRI of the brain was performed which revealed an acute infarct in the inferior medial left cerebellum. Cardiology was requested to see the patient to perform transesophageal echocardiographic study because of the CVA as well as evidence of a questionable mass on the aortic valve. This was performed yesterday by Dr. Melyssa Asencio findings revealed no clot in the left atrial appendage, normal mitral, aortic, and tricuspid valves. Intra-atrial septum appears to be intact without any spontaneous shunt. There are late arriving bubbles after saline bubble injection suggestive of a small PFO or AV malformation. Normal left ventricular function and mild intimal thickening of the aorta. Venous duplex study was negative for any DVT. This morning, patient was complaining again of extreme dizziness, he states that he now felt extremely weakness in the right side of his body, had some mild expressive aphasia, and generally states he just does not feel well. Dr. Brooks was notified stat CT of the brain was ordered. WBC 11.4, hemoglobin 15.8, platelet count 270, potassium 3.6 , BUN 17, creatinine 0.9. Troponin .012. The pressure on arrival to the emergency room 150/76 with a heart rate in the 70s, 100% on room air. Blood pressure this morning 157/80 with a heart rate in the 50s to 60s. Past Medical History Past Medical History: Hyperlipidemia, Hypertension 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 History of Any Multi-Drug Resistant Organisms: None Reported Past Surgical History: Appendectomy Additional Past Surgical History / Comment(s): Chest tube Past Psychological History: No Psychological Hx Reported Smoking Status: Current every day smoker Past Alcohol Use History: Occasional Past Drug Use History: None Reported Medications and Allergies Home Medications Medication Instructions Recorded Confirmed Type Buprenorphine HCl/Naloxone HCl 0.5 film SL MOWEFR 12/01/16 12/01/16 History [Suboxone 2 mg-0.5 mg Sl Film] Buprenorphine HCl/Naloxone HCl 1 film SL SUTUTHSA 12/01/16 12/01/16 History [Suboxone 2 mg-0.5 mg Sl Film] Gabapentin [Neurontin] 300 mg PO TID 12/01/16 12/01/16 History Allergies Allergy/AdvReac Type Severity Reaction Status Date / Time morphine AdvReac TIRED Verified 12/01/16 13:33 Physical Exam Vitals: Vital Signs Temp Pulse Resp BP Pulse Ox 12/03/16 09:00 97 F L 57 L 16 157/80 97 12/03/16 04:00 65 17 130/58 92 L 12/03/16 00:00 60 16 135/74 94 L 12/02/16 20:00 16 12/02/16 14:30 51 L 142/86 12/02/16 14:15 51 L 130/72 12/02/16 14:00 49 L 134/70 12/02/16 13:45 48 L 142/88 12/02/16 12:00 49 L 18 158/89 94 L 12/02/16 11:02 49 L 18 158/89 97 Intake and Output 12/02/16 12/03/16 12/03/16 22:59 06:59 14:59 Intake Total 390 200 Output Total 300 Balance 90 200 Intake: Oral 390 200 Output: Urine 300 Other: # Voids 1 Weight 112.4 kg PHYSICAL EXAMINATION: HEENT: Head is atraumatic, normocephalic. Pupils equal, round. Patient is noted to have ptosis of the left eye with mild drooping of the left eye. Neck is supple. There is no elevated jugular venous pressure. HEART EXAMINATION: Heart S1, S2 normal. No murmur or gallop heard. CHEST EXAMINATION: Lungs are clear to auscultation and precussion. No chest wall tenderness is noted on palpation or with deep breathing. ABDOMEN: Soft, nontender. Bowel sounds are heard. No organomegaly noted. EXTREMITIES: 2+ peripheral pulses with no evidence of peripheral edema and no calf tenderness noted. Mild right leg weakness NEUROLOGIC patient is awake, alert and oriented -3. Mild expressive aphasia complaints of dizziness and headache . Results 12/01/16 13:17 12/01/16 13:17 Current Medications Generic Name Dose Route Start Last Admin Trade Name Freq PRN Reason Stop Dose Admin Acetaminophen 650 mg 12/01/16 23:11 12/02/16 18:46 Tylenol Tab PO 650 mg Q6HR PRN Administration Fever and/ or Pain Clopidogrel Bisulfate 75 mg 12/03/16 09:00 Plavix PO DAILY KERRIE Dexamethasone 4 mg 12/03/16 09:00 Hexadrol PO QID KERRIE Diazepam 5 mg 12/01/16 16:26 Valium IVP Q4HR PRN Muscle Spasm Gabapentin 300 mg 12/01/16 23:15 12/03/16 05:43 Neurontin PO 300 mg TID KERRIE Administration Hydromorphone HCl 1 mg 12/01/16 16:27 Dilaudid IVP Q6HR PRN Pain Sodium Chloride 1,000 mls @ 20 mls/hr 12/02/16 13:00 12/02/16 16:02 Saline 0.9% IV 20 mls/hr .Q24H KERRIE Administration Miscellaneous Information 1 each 12/01/16 14:23 12/01/16 15:00 Rx Info: Iv Contrast Was Given MISCELLANE 12/03/16 14:23 1 each DAILY PRN Administration Per Protocol Nicotine 1 patch 12/03/16 09:00 Habitrol 14mg/24hr Patch TRANSDERM DAILY KERRIE Ondansetron HCl 4 mg 12/01/16 16:26 Zofran IVP Q6HR PRN Nausea And Vomiting Pantoprazole Sodium 40 mg 12/02/16 09:00 12/02/16 11:05 Protonix IVP Not Given DAILY KERRIE Intake and Output 12/02/16 12/03/16 12/03/16 22:59 06:59 14:59 Intake Total 390 200 Output Total 300 Balance 90 200 Intake: Oral 390 200 Output: Urine 300 Other: # Voids 1 Weight 112.4 kg EKG Interpretations (text) CT shows normal sinus rhythm with no acute changes. Assessment and Plan Plan: Assessment and Plan #1 acute left cerebellar stroke, being followed by neurology #2 status post MESFIN which reveals small PFO, normal left ventricular systolic function, no evidence of thrombus #3 Hypertension #4 hyperlipidemia #5 nicotine dependence Plan Patient will be taken for a stat repeat CT of the brain this morning. We will start the patient on Lipitor 80. Once the patient is more stable, possible loop recorder will be placed if no evidence of any atrial fibrillation here on the monitor. So far patient has had no documented atrial fibrillation. Continue to follow along with you. DNP note has been reviewed, I agree with a documented findings and plan of care. Patient was seen and examined.
--- NOTE | 2016-12-03 09:52 | CT ---
"EXAMINATION TYPE: CT brain wo con DATE OF EXAM: 12/03/2016 9:26 AM HISTORY: Rt side weakness and dizziness. Numbness. CT DLP: 1054.2 mGycm. Automated Exposure Control for Dose Reduction was Utilized. TECHNIQUE: CT scan of the head is performed without contrast. COMPARISON: CT brain from 2 days ago.. FINDINGS: There is no acute intracranial hemorrhage or midline shift identified. Ventricles and sul ci are within normal limits in size. There is new low attenuation left cerebellum on axial image 10 consistent with evolving acute infarct, this measures approximately 1.7 x 1.5 x 1.3 cm on axial image 10 and coronal image 52. The globes are intact bilaterally. There is mild to moderate mucosal thicke jose involving bilateral ethmoid sinuses. There is dependent air-fluid level now seen in left sphenoi d sinus. IMPRESSION: No acute intracranial hemorrhage or midline shift. There is evolving acute infarct left cerebellum. There is developing left acute sphenoid sinus disease. A Yellow message has been communicated to Marco A Torres MD via the [employer] | Critical Re sult system on 12/03/2016 9:50 AM, Message ID [id number]."
[2016-12-03] MEDS ORDERED: ATORVASTATIN 80 MG TAB PO SCH (11:15)
[2016-12-03 11:28] LABS: Basophils % (A) 0 %; CH 31.3; CHCM 32.9; Eosinophils # (A) 0.2 k/uL (0-0.7); Eosinophils % (A) 1 %; HCT 46.3 % (39.0-53.0); HDW 2.26; HGB 15.4 gm/dL (13.0-17.5); Luc # (Auto) 0.06; Luc % (Auto) 0; Lymphocytes # (A) 0.8 k/uL (1.0-4.8); Lymphocytes % (A) 6 %; MCH 31.7 pg (25.0-35.0); MCHC 33.2 g/dL (31.0-37.0); MCV 95.6 fL (80.0-100.0); Monocytes # (A) 0.3 k/uL (0-1.0); Monocytes % (A) 2 %; Neutrophils # (A) 13.5 k/uL (1.3-7.7); Neutrophils % (A) 91 %; RBC 4.85 m/uL (4.30-5.90); RDW 13.5 % (11.5-15.5); WBC 14.9 k/uL (3.8-10.6); WBC (Perox) 15.08
[2016-12-03] MEDS ORDERED: RX INFO: IV CONTRAST WAS GIVEN 1 EACH MISC MISCELLANE PRN (11:30)
[2016-12-03 11:33] LABS: Glucose,Whole Blood 125 mg/dL (75-99)
[2016-12-03 11:36] LABS: INR 1.1 (<1.1)
[2016-12-03 11:41] LABS: ALT 28 U/L (21-72); AST 18 U/L (17-59); Alkaline Phosphatase 60 U/L (38-126); Anion Gap 8 mmol/L; Blood Urea Nitrogen 10 mg/dL (9-20); Calcium 9.5 mg/dL (8.4-10.2); Carbon Dioxide 23 mmol/L (22-30); Chloride 111 mmol/L (98-107); Cholesterol 183 mg/dL (<200); Glucose 137 mg/dL (74-99); HDL Cholesterol 62 mg/dL (40-60); Non-African American GFR(MDRD) >60 (>60 ml/min/1.73 sqM); Sodium 142 mmol/L (137-145); Total Bilirubin 0.6 mg/dL (0.2-1.3); Total Protein 6.8 g/dL (6.3-8.2); Triglycerides 42 mg/dL (<150)
[2016-12-03 11:42] LABS: Partial Thromboplastin Time 22.2 sec (22.0-30.0)
[2016-12-03 11:51] LABS: Creatine Kinase 67 U/L (55-170)
--- NOTE | 2016-12-03 12:00 | PN ---
DATE OF SERVICE: 12/02/2016 ADDENDUM TO PROGRESS NOTE: Additionally, patient's symptoms got worse. He noted his gait was becoming worse. They called me. Patient went down for a brain MRI. That shows acute infarct in the inferior medial left cerebellum. Patient still has some headache. On examination, patient's gait is worse and left-sided dysdiadochokinesia is worse. Dr. Torres was called. He switched the patient over to Plavix. I talked to him and his at length. Patient is on an appropriate treatment plan.
[2016-12-03 12:05] LABS: Creatine Kinase MB 0.5 ng/mL (0.0-2.4); Troponin I <0.012 ng/mL (0.000-0.034)
--- NOTE | 2016-12-03 12:34 | CT ---
EXAMINATION TYPE: CT angio head neck DATE OF EXAM: 12/03/2016 12:16 PM HISTORY: Vertigo, CVA. Syncope per order. COMPARISON: CTA head and neck from [address] DLP: 415.8 mGycm. Automated Exposure Control for Dose Reduction was Utilized. TECHNIQUE: CTA scan of the neck is performed with IV Contrast, patient injected with 65 mL of Omnipa que 350, axial images are obtained, coronal and sagittal reformatted images are reviewed. Three-D rec onstructed images are created on an independent workstation and reviewed. FINDINGS: Carotid/Vascular Structures: There is normal three-vessel origin from aortic arch. Right common carot id artery shows normal origin from right brachiocephalic artery. There is no significant stenosis or plaque in the right common or internal carotid artery. There is patent right external carotid artery without significant stenosis identified. There is no significant focal plaque or stenosis in the left common or internal carotid artery. There is patent external carotid artery without significant stenosis. There is dominant right vertebral artery. There is nonvisualization of small caliber left vertebral a rtery in distal segments redemonstrated. Visualization distally near basilar junction is likely from retrograde flow. No significant change from prior study is seen. There is patent right posterior communicating artery redemonstrated. There is no significant focal st enosis or aneurysmal change in the posterior circulation. There is hypoplastic left posterior communi cating artery redemonstrated. Images of the anterior circulation show no significant focal stenosis. There is hypoplastic right A1 segment with filling of A2 segment due to patent anterior communicating artery. No aneurysm is identi fied. No significant change from prior study is seen. Other: Mild underlying emphysematous change in visualized lung apices is redemonstrated. Slight levoc onvex scoliotic curvature centered in the upper thoracic spine is again seen. IMPRESSION: 1. No aneurysmal change at the level of the [place]. 2. No significant focal stenosis in common or internal carotid arteries bilaterally. 3. No significant change from study 2 days earlier.
[2016-12-03] MEDS ORDERED: ASPIRIN 325 MG TAB PO STA (12:36)
[2016-12-03] MEDS ORDERED: SODIUM CHLORIDE 0.9% 1,000 ML IV SCH (12:45)
[2016-12-03 13:01] LABS: Glucose,Whole Blood 145 mg/dL (75-99)
[2016-12-03] MEDS: ACETAMINOPHEN TAB 325 MG TAB PO PRN (13:39)
--- NOTE | 2016-12-03 14:28 | P.PN ---
Subjective This patient is a 51-year-old male who was seen in neurology consultation yesterday with admitting symptoms of severe dizziness and gait ataxia. His neurological findings on examination yesterday suggested possibility of benign positional vertigo versus brainstem stroke. Patient was advised to undergo MRI of the brain for further evaluation. Patient completed a MRI of the brain today which was reviewed. MRI reveals evidence of an acute left cerebellar stroke. Patient was seen by cardiology and underwent a MESFIN procedure yesterday for further evaluation of acute stroke findings. MESFIN indicates possible small PFO or AV malformation. Cardiology did reevaluate the patient today and they are in agreement that the patient likely does have a small PFO. Case was discussed with Dr. Jennifer Pascal who states that they want to repeat some studies on Monday for the patient. We reviewed the results of the MRI and MESFIN yesterday with the patient and his in detail. The patient was complaining of left-sided retro-orbital eye pain. There is some swelling in the periorbital region as well some left eyelid ptosis. We have recommended a stat ophthalmology consultation be ordered for this patient for review of this sudden changes yesterday. We will also began the patient on Decadron for the possibility of mild vasogenic edema secondary to his recent stroke. He is requesting some pain medication due to some degree of left-sided headache pain. He was given tramadol yesterday which did seem to help reduce his pain symptoms. He did go to sleep quite easily yesterday evening. This morning at about 9 AM the patient showed new signs of right arm weakness. He was also having difficulty using his cell phone with the use of his right hand. This occurred at about 9 AM. He then was sent for a stat computed tomography scan of the brain. A CAT scan of the brain was completed this morning and revealed no acute intracranial hemorrhage or midline shift. There was evolving acute infarct in the left cerebellum. Left sphenoid sinusitis was noted. We did discuss the results of the CAT scan today with the patient and his . At about 11 AM this morning he continued to show new symptoms of weakness on his right side and questionable right facial droop. A code stroke was initiated at about 11 AM this morning. He was sent for a CTA angiogram today. This results were reviewed and reveals no evidence of acute aneurysm at the level of the [place]. No significant focal stenosis was noted in either internal carotid arteries bilaterally. There was no significant change compared to the previous study done [address] Gamboa was consulted for interventional neurology. Stroke robot was activated. After review of the CTA angiogram results no further intervention was recommended. He is now been transferred to the intensive care unit for close neuro checks and close neurological monitoring. We have discussed all of these test results today in detail with the patient and his at bedside. He will be monitored closely in the ICU today with every hour neuro checks. If there is any further deterioration in his neurological status he will be transferred to the ICU unit at [facility] were Dr. Gamboa will accept him for close neuro ICU follow-up regarding his cerebellar stroke. We have discussed all of his test results in detail today with the patient and his . They're both aware of his very guarded condition at this time. We will continue the patient on IV Decadron and will await further follow-up with the neuro stunner animal if there is any further neurological changes for the patient. Patient was seen by ophthalmology today. Dr. Álvarez has not found any significant changes in the left orbital or eye exam. He does have 20/20 vision. We have reviewed all test results done today in detail with the patient and his in the intensive care unit. Given the location of his cerebellar stroke on the left side there is concern that he may have some evolution of his stroke since yesterday. As noted CAT scan failed to reveal any new changes. This case was discussed today at length with Dr. Spencer and we did recommend the patient to be considered for transfer to the neuro intensive care at [facility]. He will need close neuro checks every 1 hour due to the possibility of evolving posterior fossa stroke. The [facility] also has neurosurgical backup which is not available locally. We discussed all of these findings today with the patient and his in the ICU. The patient is now agreeable to move forward with transfer to the neuro intensive care unit at [facility]. Arrangements are being made and the patient will be transferred there immediately for ongoing neuro intensive care unit monitoring. He will be closely monitored there and we will follow up with his condition tomorrow. We will continue close neurological follow-up of this patient in the intensive care unit. Case was discussed today at length with the patient and his . All of their questions were answered. They're both aware of his guarded condition. His overall prognosis at this time remains very guarded. Objective - Vital Signs Vital signs: Vital Signs Temp 96.8 F L 12/03/16 11:11 Pulse 51 L 12/03/16 11:25 Resp 18 12/03/16 11:11 BP 138/86 12/03/16 11:25 Pulse Ox 97 12/03/16 11:25 Intake & Output 12/02/16 12/03/16 12/03/16 18:59 06:59 18:59 Intake Total 820 350 Output Total 700 Balance 120 350 Weight 112.4 kg Intake: IV 300 Intake, IV Titration 160 Amount Sodium Chloride 0.9% 1, 160 000 ml @ 20 mls/hr IV . Q24H [facility] Rx#:[id number] Oral 360 350 Output: Urine 700 Other: Voiding Method Urinal # Voids 1 - Exam Physical examination: PHYSICAL EXAMINATION: Patient is resting comfortably in bed. VITAL SIGNS: Blood pressure is [138/86]. Heart rate is [51]. Respiration is [18] . Temperature is [96.8]. HEENT: Head is atraumatic, neck is supple, there were no carotid bruits. CHEST: Lungs are clear to auscultation and percussion. CARDIAC: S1, S2 normal rate and rhythm. There is no murmur. ABDOMEN: Soft and nontender. Bowel sounds are present. EXTREMITIES: There is no pedal edema. Peripheral pulses are present. Neurological examination: Patient's neurological examination is unchanged from yesterday. He continues to have dysmetria on the left upper arm. He continues to have horizontal nystagmus on gaze testing. He has some new evidence of right pronator drift on exam today. His remaining neurological examination is unchanged from yesterday. - Labs CBC & Chem 7: 12/03/16 11:19 12/03/16 11:19 Labs: Abnormal Lab Results - Last 24 Hours (Table) 12/03/16 12/03/16 12/03/16 Range/Units 11:14 11:19 11:19 WBC 14.9 H (3.8-10.6) k/uL Neutrophils # 13.5 H (1.3-7.7) k/uL Lymphocytes # 0.8 L (1.0-4.8) k/uL Chloride 111 H (98-107) mmol/L Glucose 137 H (74-99) mg/dL POC Glucose (mg/dL) 125 H (75-99) mg/dL LDL Cholesterol, Calc 113 H (0-99) mg/dL HDL Cholesterol 62 H (40-60) mg/dL Assessment and Plan (1) Vertebrobasilar insufficiency Status: Acute Code(s): G45.0 - VERTEBRO-BASILAR ARTERY SYNDROME (2) Benign paroxysmal positional vertigo Status: Acute Code(s): H81.10 - BENIGN PAROXYSMAL VERTIGO, UNSPECIFIED EAR (3) Syncope Status: Acute Code(s): R55 - SYNCOPE AND COLLAPSE (4) Neurologic gait dysfunction Status: Acute Code(s): R26.9 - UNSPECIFIED ABNORMALITIES OF GAIT AND MOBILITY Plan: This patient is a 51-year-old male who was initially admitted to Hospital with symptoms of acute dizziness and gait imbalance. He was admitted to hospital and underwent a complete stroke evaluation. He underwent MRI of the brain yesterday which revealed evidence of a acute left cerebellar stroke. This morning at about 9 AM he showed new symptoms of right arm weakness. He was also noted to have some visual changes. Ophthalmology did see the patient today and have not found any significant ophthalmological findings. At about 11 AM the patient continued to show new right-sided weakness and a code stroke was initiated. Neuro interventional is Dr. Gamboa ordered CTA angiogram. CT angiogram was reported negative for any acute changes and unchanged from study done 2 days earlier. He was sent for a computed tomography scan of the brain this morning at 9 AM due to the changes of right-sided weakness. CAT scan performed today revealed no acute intracranial hemorrhage or midline shift. There was evolving left cerebellar infarct noted. Left sphenoid sinusitis was noted. The patient was evaluated by neuro interventional group at [facility]. After reviewed the CTA angiogram no further intervention was recommended. Patient is now transferred to the intensive care unit for close neurological monitoring. He will be placed on cue 1 hour neuro checks. If there is any further deterioration in his neurological status he will be transferred to neuro ICU stunner animal at [facility] under the care of Dr. Gamboa. We did have a long discussion this afternoon with Dr. Spencer and have recommended the patient to be considered for transfer to [facility] for further monitoring in the neuro intensive care unit. Given the recent neurological changes for the patient over the past 24 hours in the location of the posterior fossa stroke he may require neurosurgical intervention if there should be a sudden change in his neurological status. Neurosurgery is not available here locally. Dr. Spencer agrees and we will make arrangements to transfer the patient today to the neuro intensive care unit at [facility] where he will be closely monitored by Dr. Gamboa. Case was discussed today at length with the patient and his in detail. All test results were reviewed once more with the patient and his . They are both in agreement to make arrangements to transfer the patient today to the neuro intensive care unit at [facility] for ongoing stroke therapy and close neurological follow-up of his recent left cerebellar stroke. His overall prognosis at this time remains very guarded. Both the patient and his are in full agreement with our treatment plan and we will await transfer of this patient to the neuro ICU at [facility] later today. We will check on the patient's progress tomorrow and would be happy to follow up with the patient once he returns home. His overall prognosis however at this time remains very guarded. We will continue to follow the patient in the intensive care unit today until he is transferred. His overall prognosis at this time remains guarded.
--- NOTE | 2016-12-03 14:40 | P.CON ---
Consult Note - . Consult date: 12/03/16 Assessment/Plan:: A: 1) PTOSIS upper lid left without any associated 3rd nerve palsy issues. There are no pupillary problems. 2) left facial PAIN, now resolved. There is no orbital masses or restriction of EOM. Vision is reasonably acceptable for 49 y/o without glasses. I cannot appreciate the difference as is noted in terms of acuity, as it's overall pretty good. Examination has already been performed for possible Raeder , to rule out the Negar's syndrome, however there are no pupillary findings consistent with this and results support this finding. 3) left orbital SWELLING of unknown etiology. Acute vascular etiologies are the most likely to cause a sudden change in orbital size over matter of hours. However, they are usually associated with other more catastrophic findings, e.g. , total ophthalmoplegia, with the severe pain and are often obtunded. and is often associated with a posterior communicating artery aneurysm. 4) Left CEREBELLAR INFACTION a number of the findings of nystagmus, ptosis, vertigo may be consistent with a variation of a lateral syndrome resulting from an occlusion to the blood supply to the lateral brain stem and cerebellum. P: Agree with current treatment and will follow along at your request. I would recommend a full ophthalmic examination upon discharge. Eye Problem Exam - General Limitations: no limitations Head exam: atraumatic Eyelids: Normal Inspection: Bilateral (mild ptosis left. Fissures 15 mm OD, 13 mm OS. MRD +3 OD, +1 OS. Levator 18 mm OD, 15 mm OS. ) Pupils: Regular, Round: Bilateral, Reactive: Bilateral (-APD) Sclera: Normal Inspection: Bilateral Anterior chamber: Normal Inspection: Bilateral Posterior chamber: Normal Inspection: Bilateral (non dilated) Visual acuity (L) = 20/: 20 Visual acuity (R) = 20/: 25 (mild slowness) With correction: No IOP (L) in mmH IOP (R) in mmH IOP measured with: Tonopen Extraocular Movement: Normal (nystagmus, fast phase to right. Normal D&V. ), Abnormal, Other Eye Problem HPI - General Source: patient, RN notes reviewed, old records reviewed Mode of arrival: wheelchair Limitations: no limitations - History of Present Illness Initial comments: 51 y/o male admitted for left cerebellar infarction after being brought in for vomiting and slurred speech with headache. Multiple radiological assessments have been accomplished the significant findings were of the MRI which noted the left cerebellar stroke. During the course of the admission he and his noted left side swelling which was associated with severe pain and apparently with poor vision. He has not had any eye examination that he is aware of, and typically only uses OTC readers. He feels that today his vision is still not back to normal, but that the swelling has resolved as has the discomfort. He denies any diplopia or loss of vision. MD chief complaint: eye pain, vision change Timing/duration: resolved prior to arrival Location: left eye Symptoms: pain Severity: severe Severity scale (1-10): 10 Quality: aching Consistency: now resolved (started earlier yesterday and resolved last evening or by this morning. Seemed to have been associated with left eyelid droop, and swelling.) Provoking factors: none known Associated symptoms: none Treatments prior to arrival: none - Related Data Home Medications Medication Instructions Recorded Confirmed Buprenorphine HCl/Naloxone HCl 0.5 film SL MOWEFR 12/01/16 12/01/16 [Suboxone 2 mg-0.5 mg Sl Film] Buprenorphine HCl/Naloxone HCl 1 film SL SUTUTHSA 12/01/16 12/01/16 [Suboxone 2 mg-0.5 mg Sl Film] Gabapentin [Neurontin] 300 mg PO TID 12/01/16 12/01/16 Allergies Allergy/AdvReac Type Severity Reaction Status Date / Time morphine AdvReac TIRED Verified 12/01/16 13:33
[2016-12-03 16:36] VITALS: TEMP 98.2
[2016-12-03 18:43] VITALS: BP 153/85; PULSE 73; RESP 29
--- NOTE | 2016-12-04 09:32 | DS ---
DATE OF ADMISSION: 12/01/2016 DATE OF DISCHARGE: 12/03/2016 HOSPITAL COURSE: This is a 51-year-old gentleman that is admitted to the hospital with complaints of a change in vision and significant right-sided weakness and abnormal gait prior to admission. Patient also had left eyelid droop and a facial droop as well. Initially patient underwent a CT angiogram, which did not reveal any aneurysms or intracranial arterial thrombus. Patient was evaluated by neurologist. Recommended a transesophageal echocardiogram. Patient underwent a MESFIN was noted to have a grade 1 PFO. Patient was seen by Dr. Pickett until 12/02/2016. I took over service in cross coverage on 12/03/2016. During my evaluation, it appeared that the patient had worsening right-sided weakness and confusion as stated by the patient. Patient was evaluated again with ( ) stroke and by ( ) via the robot. The patient underwent a MRI on this admission was noted to have left-sided cerebellar stroke. Carotid Doppler study did not reveal significant stenosis. EKG did not reveal any atrial fibrillation ( ) telemetry monitoring. On today's examination: GENERAL APPEARANCE: Alert, oriented x3. Does not appear to be in distress. Neck is supple. No JVD. Extraocular movements intact. The patient states his vision is blurry diffusely. He does not state to have any specific visual field defects. HEART: S1, S2 heard. Regular rate and rhythm. No murmurs appreciated. LUNGS: Good air movement. Clear to auscultation. No rhonchi, wheezing or crackles. NEUROLOGICAL: Cranial nerves: There appears to be a left-sided lower motor neuron type of facial nerve palsy. Strength is about 3 out of 5 in the right upper and right lower extremity. Deep tendon reflexes appear to be equivocal. No significant dysarthria that is appreciated. DISCHARGE DIAGNOSES: 1. Acute cerebrovascular accident of the left cerebellar region. Grade I patent foramen ovale. 2. Peripheral neuropathy. 3. History of opioid abuse currently on Suboxone treatment. 4. Ongoing tobacco use. PLAN: With acute changes in patient's neurological status, patient will be triaged to neurological critical care setting at [facility]. We will start patient on normal saline at 125 mL per hour to increase cerebral perfusion pressure. With PFO, there is no current indication for closure. We will start the patient on aspirin and Plavix. To continue a statin. Patient will be transferred to [facility]. I did speak to ( ) on the phone and I discussed this with the patient as well, who agrees with the above management. I did discuss risks and benefits of signs of stroke in the posterior fossa and need for closer monitoring as patient is having some acute changes. Disposition to another hospital.
--- NOTE | 2016-12-30 07:34 | PN ---
DATE OF SERVICE: 12/02/2016 ATTENDING NOTE: The patient was seen examined by me. I reviewed the note of my nurse practitioner, Ms. Colon. Discussed and agreed to the same. Patient admitted with an episode of dizziness and difficulty walking, falling to one side. MRI confirmed cerebellar stroke. On examination, left-sided dysdiadochokinesia. When walks, patient walks to the left side, possible left-sided nystagmus. Speech is slurred. MRI results noted. ASSESSMENT: Acute stroke, likely ischemic located in the inferior medial left cerebellum. PLAN: Neurology, rehab consulted. Antiplatelet agents, Lipitor to continue. MESFIN results are noted.
== END 2016-12-03 19:00 | disposition short-term general hospital (02) | DRG 65 ==
LOC: EC 13:00 → 3OBS 16:10 → 6SEL 16:49 → 6ICU 12-03 12:37
PROVIDERS: ADMIT Hospitalist; ATTEND Hospitalist
PROC: B246ZZ4 Ultrasonography of Right and Left Heart, Transesophageal (ICD-10-PCS; principal; 2016-12-02 12:15)
DX: I63.9 Cerebral infarction, unspecified (principal); G81.91 Hemiplegia, unspecified affecting right dominant side; I10 Essential (primary) hypertension; Q21.1 Atrial septal defect; G62.9 Polyneuropathy, unspecified; H02.402 Unspecified ptosis of left eyelid; H55.00 Unspecified nystagmus; F17.210 Nicotine dependence, cigarettes, uncomplicated; E78.5 Hyperlipidemia, unspecified; E66.9 Obesity, unspecified; E78.00 Pure hypercholesterolemia, unspecified; H81.10 Benign paroxysmal vertigo, unspecified ear; J32.3 Chronic sphenoidal sinusitis; R29.810 Facial weakness; R47.01 Aphasia; Z68.31 Body mass index [BMI] 31.0-31.9, adult; Z79.899 Other long term (current) drug therapy; R26.81 Unsteadiness on feet; Z87.898 Personal history of other specified conditions; Z88.5 Allergy status to narcotic agent
CPT/HCPCS: 36415; 70450; 70496; 70498; 70551; 71020; 72125; 80053; 80061; 82550; 82553; 83735; 84100; 84484; 85025; 85610; 85730; 93005; 93306; 93312; 93320; 93325; 93880; 93970; 95819; 96361; 96374; 96375; 96376; 99285

== ENCOUNTER 2018-12-26 11:09 | Emergency (ER) | payer OTHER ==
[2018-12-26 11:17] VITALS: BP 159/97; PULSE 64; RESP 16; TEMP 97.5
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
--- NOTE | 2018-12-26 12:11 | XR ---
EXAMINATION TYPE: XR chest 2V DATE OF EXAM: 12/26/2018 COMPARISON: 12/01/2016 HISTORY: Substernal pain after injury TECHNIQUE: Frontal and lateral views of the chest are obtained. FINDINGS: There is no focal air space opacity, pleural effusion, or pneumothorax seen. The cardiac silhouette size is within normal limits. Cardiac loop recorder is noted. The osseous structures are intact. IMPRESSION: No acute cardiopulmonary process.
== END 2018-12-26 12:26 | disposition home or self-care (01) ==
LOC: EC 11:09
DX: S20.219A Contusion of unspecified front wall of thorax, initial encounter (principal); F17.200 Nicotine dependence, unspecified, uncomplicated; Z86.73 Personal history of transient ischemic attack (TIA), and cerebral infarction without residual deficits; Z79.82 Long term (current) use of aspirin; Z88.5 Allergy status to narcotic agent; Y04.0XXA Assault by unarmed brawl or fight, initial encounter; Y92.69 Other specified industrial and construction area as the place of occurrence of the external cause; Y99.0 Civilian activity done for income or pay
CPT/HCPCS: 71046; 99284